=== PATIENT | male | born 1960 | race Caucasian/White ===

== ENCOUNTER 2023-04-18 13:08 | Emergency (ER) | payer BC ==
[2023-04-18] MEDS ORDERED: fentaNYL 100 MCG/2 ML SDV IVPUSH ONE (13:26)
[2023-04-18] MEDS ORDERED: Lactated Ringers 1,000 ML IV ONE (13:26)
[2023-04-18] MEDS ORDERED: HYDROmorphone 0.5 MG/0.5 ML Syringe IVPUSH ONE ×2 (13:26→15:59)
[2023-04-18] MEDS ORDERED: Iopamidol 612 MG/ML 30 ML SDV IVPUSH ONE (13:35)
[2023-04-18] MEDS ORDERED: Iopamidol 612 MG/ML 100 ML Bottle IVPUSH ONE (13:35)
[2023-04-18] MEDS: Sodium Chloride 0.9% 10 ML Syringe FLUSH PRN ×2 (13:44→14:22)
[2023-04-18] MEDS ORDERED: Sodium Chloride 0.9% 100 ML IV SCH (13:45)
[2023-04-18 13:56] LABS: BASOPHILS ABSOLUTE AUTO 0.02 K/mm3 (0.01-0.08); BASOPHILS PERCENT AUTO 0.3 % (0.1-1.2); EOSINOPHILS ABSOLUTE AUTO 0.27 K/mm3 (0.04-0.54); EOSINOPHILS PERCENT AUTO 3.6 (0.8-7.0); HEMATOCRIT 45.9 % (40.1-51.0); HEMOGLOBIN 15.5 gm/dl (13.7-17.5); IMMATURE GRAN ABSOLUTE AUTO 0.03 K/mm3 (0.00-0.10); IMMATURE GRAN PERCENT AUTO 0.4 % (<=1.0); MEAN CORPUSCULAR HEMOGLOBIN 30.1 pg (25.7-32.2); MEAN CORPUSCULAR HGB CONC 33.8 g/dl (32.2-35.5); MEAN CORPUSCULAR VOLUME 89.1 fl (79.0-92.2); MEAN PLATELET VOLUME 9.4 fl (9.4-12.3); MONOCYTES ABSOLUTE AUTO 0.56 K/mm3 (0.30-0.82); MONOCYTES PERCENT AUTO 7.5 % (5.3-12.2); NEUTROPHILS ABSOLUTE AUTO 3.94 K/mm3 (1.78-5.38); NEUTROPHILS PERCENT AUTO 53.2 % (34.0-67.9); PLATELET COUNT,PLT 264 K/mm3 (163-337); RED BLOOD CELL COUNT 5.15 M/mm3 (4.63-6.08); WHITE BLOOD CELL COUNT,WBC 7.42 K/mm3 (4.23-9.07)
[2023-04-18 14:15] LABS: A/G RATIO 1.1 (1-2); ALBUMIN 3.6 g/dl (3.4-5.0); ANION GAP 8.1 (5-15); BILIRUBIN TOTAL 0.5 mg/dL (0.2-1.0); BUN/CREATININE RATIO 11.7 (14-18); CALCIUM 8.7 mg/dL (8.5-10.1); CREATININE 1.2 mg/dL (0.7-1.3); EST CRCL DRUG DOSING (CG) 59.07 mL/min; POTASSIUM,K 4.1 mEq/L (3.5-5.1); PROTEIN TOTAL,TP 6.8 g/dl (6.4-8.2)
== END 2023-04-18 16:20 | disposition home or self-care (01) ==
LOC: JD.ED 13:08
DX: S32.019A Unspecified fracture of first lumbar vertebra, initial encounter for closed fracture (principal); S32.029A Unspecified fracture of second lumbar vertebra, initial encounter for closed fracture; S32.039A Unspecified fracture of third lumbar vertebra, initial encounter for closed fracture; S32.049A Unspecified fracture of fourth lumbar vertebra, initial encounter for closed fracture; E78.00 Pure hypercholesterolemia, unspecified; E03.9 Hypothyroidism, unspecified; Z79.899 Other long term (current) drug therapy; V80.010A Animal-rider injured by fall from or being thrown from horse in noncollision accident, initial encounter
CPT/HCPCS: 36415; 70450; 71260; 72125; 72128; 72131; 73552; 73562; 74177; 80053; 83605; 85025; 96361; 96374; 96375; 96376; 99284; J1170; J3010; J3490; J7120; Q9967